=== PATIENT | male | born 1965 | race Caucasian/White ===

== ENCOUNTER 2018-08-18 15:58 | Emergency (ER) | payer OTHER ==
[~2018-08-18] VITALS: Ht 172.7 cm; Wt 88.0 kg
[2018-08-18 16:05] VITALS: Ht 172.7 cm; Wt 88.0 kg
--- NOTE | 2018-08-18 17:41 | ERD ---
ER Documentation Chief Complaint Chief Complaint sent by pcp for increased blood sugar level HPI 53-year-old male history of iom-paujdbf-[id number] diabetes who has not been taking medications for 2 years. He was sent in by his primary care physician to evaluate for his diabetes. The patient denies any polyuria, polydipsia, polyph agia. He denies any other symptoms. He states that he does not check his sugar recently. He states that he just had a piece of chocolate. Patient otherwise has no complaints. ROS All systems reviewed and are negative except as per history of present illness. Medications Home Meds Active Scripts Metformin* (Glucophage*) 500 Mg Tab, 500 MG PO BID for 30 Days, TAB Prov:TIFF NAVARRO MD 08/18/18 FmHx Family History: diabetes Physical Exam Vitals Vital Signs Date Temp Pulse Resp B/P (MAP) Pulse Ox O2 O2 Flow FiO2 Time Delivery Rate 08/18/18 73 14 137/90 98 Room Air 17:35 (106) 08/18/18 98.6 78 19 136/77 99 16:05 (96) Physical Exam General: Well developed, well nourished, no acute distress Head: Normocephalic, atraumatic. Eyes: Pupils equally reactive, EOM intact ENT: Moist mucous membranes Neck: Supple, no lymphadenopathy Respiratory: Lungs clear bilaterally, no distress Cardiovascular: RRR, no murmurs, rubs, or gallops Abdominal: Soft, non-tender, non-distended, no peritoneal signs : Deferred MSK: No edema, no unilateral swelling, 5/5 strength Neurologic: Alert and oriented, moving all extremities, normal speech, no focal weakness, no cerebellar signs Skin: No rash Psych: Normal mood Result Diagram: 08/18/18 1751 08/18/18 175 Results 24 hrs Laboratory Tests Test 08/18/18 16:08 08/18/18 17:35 08/18/18 17:39 08/18/18 17:51 Bedside Glucose 426 mg/dL 351 mg/dL Blood Gas Blood venous Specimen Source Arterial Blood 08/18/2018 6:25:0 Date Drawn 2 PM Arterial Blood A-Line Gas Puncture Site Gonzales Test N/A Venous Blood pH 7.313 Venous Blood 52.2 mmHG pCO2 (Temp Corrected) Venous Blood pO2 23.1 mmHG (Temp Corrected) Venous Blood 25.9 mmol/L HCO3 Venous Blood 37.4 mmHG Oxygen Saturation Venous Blood -1.1 mmol/L Base Excess Venous Blood 13.9 g/dl Total Hemoglobin Venous Blood 37.0 % Oxyhemoglobin Venous Blood 0.6 % Methemoglobin Carboxyhemoglobi 0.6 % n Blood Gas 37.0 C Temperature Blood Gas ROOM AIR Modality FiO2 21.0 % Blood Gas NZ Notified Whom Blood Gas 08/18/2018 6:33:4 Notified Time 6 PM White Blood 11.1 10^3/ul Count Red Blood Count 4.60 10^6/ul Hemoglobin 14.7 g/dl Hematocrit 42.8 % Mean Corpuscular 93.0 fl Volume Mean Corpuscular 32.0 pg Hemoglobin Mean Corpuscular 34.3 g/dl Hemoglobin Sheela nt Red Cell 11.9 % Distribution Width Platelet Count 364 10^3/UL Mean Platelet 11.4 fl Volume Immature 0.400 % Granulocytes % Neutrophils % 47.1 % Lymphocytes % 38.8 % Monocytes % 9.2 % Eosinophils % 3.5 % Basophils % 1.0 % Nucleated Red 0.0 /100WBC Blood Cells % Immature 0.040 10^3/ul Granulocytes # Neutrophils # 5.2 10^3/ul Lymphocytes # 4.3 10^3/ul Monocytes # 1.0 10^3/ul Eosinophils # 0.4 10^3/ul Basophils # 0.1 10^3/ul Nucleated Red 0.0 10^3/ul Blood Cells # Sodium Level 139 mmol/L Potassium Level 4.6 mmol/L Chloride Level 102 mmol/L Carbon Dioxide 27 mmol/L Level Anion Gap 10 Blood Urea 26 mg/dl Nitrogen Creatinine 0.81 mg/dl Est Glomerular > 60 mL/min Filtrat Rate mL/min Glucose Level 375 mg/dl Calcium Level 9.5 mg/dl Phosphorus Level 4.7 mg/dl Magnesium Level 2.1 mg/dl Test 08/18/18 19:21 Bedside Urine pH 5.0 (LAB) Bedside Urine Trace Protein (LAB) Bedside Urine 0.50% Glucose (UA) Bedside Urine Negative Ketones (LAB) Bedside Urine Negative Blood Bedside Urine Negative Nitrite (LAB) Bedside Urine Negative Leukocyte Estera se (L Current Medications Medications Dose Sig/Barak Start Time Status Last (Trade) Ordered Route PRN Stop Time Admin Dose Reason Admin Sodium 880 ml @ ONCE ONCE 08/18/18 DC 08/18/18 Chloride 880 mls/hr IV 18:00 17:53 08/18/18 18:59 Procedures/MDM LAB INTERPRETATION: I reviewed the laboratory testing and it shows hyperglycemia without evidence of diabetic ketoacidosis MEDICAL DECISION MAKING: The patient presents for evaluation of noncompliance with diabetes medication. Clinically exhibits no signs or symptoms concerning for diabetic ketoacidosis. It is unclear exactly why the patient's primary care physician referred him to the emergency room because the patient does not appear to have a diabetic crisis. This is a subacute issue and the patient is noncompliant with his recommended diabetes medication regimen. Patient will receive screening for DKA though low clinical concern. If negative the patient will be written for metformin and advised to follow-up with primary care physician. A phone call has been placed to the referring clinic. ER COURSE: * IVF provided * Laboratory testing does not show evidence of diabetic ketoacidosis. No indication for insulin therapy. * Patient's primary care physician cannot be reached. The patient is safe for discharge. CONSULTATION: None DISPOSITION PLAN: The patient does not have an identifiable emergent medical condition that warrants inpatient hospitalization at this time. The patient is deemed safe for discharge with outpatient follow-up. We discussed follow up with the patient's primary care doctor within 24 to 48 hours as needed. We also discussed return to the emergency room for worsening symptoms or worsening condition. Outpatient referral: None required Discharge Medications: Metformin 500 twice daily Departure Diagnosis: Primary Impression: Uncontrolled diabetes mellitus Diabetes mellitus type: type 2 Glycemic state: with hyperglycemia Qualified Codes: E11.65 - Type 2 diabetes mellitus with hyperglycemia Additional Impression: Hyperglycemia Condition: Stable TIFF NAVARRO MD August 18, 2018 17:41
[2018-08-18] MEDS ORDERED: SOD CHLORIDE 0.9% 880 ML IV ONE (18:00)
[2018-08-18] MEDS ORDERED: METF-849 PO (18:22)
[2018-08-18 20:00] VITALS: BP 150/96; PULSE 75; RESP 14
== END 2018-08-18 20:07 | disposition home or self-care (01) ==
LOC: E/R 15:58
DX: E11.65 Type 2 diabetes mellitus with hyperglycemia (principal); Z79.84 Long term (current) use of oral hypoglycemic drugs
CPT/HCPCS: 36415; 80048; 81003; 82803; 82962; 83735; 84100; 85025; J7030; Z7502